=== PATIENT | female | born 1975 | race Caucasian/White ===

== ENCOUNTER 2022-02-04 13:06 | Emergency (ER) | payer MEDICAID ==
[~2022-02-04] VITALS: Ht 170.2 cm; Wt 136.0 kg
[2022-02-04] MEDS ORDERED: ACETAMINOPHEN 325MG TABLET PO ONE (14:00)
[2022-02-04] MEDS ORDERED: IBUPROFEN 600MG TABLET PO ONE (14:00)
[2022-02-04] MEDS ORDERED: NAPR-1176 MT (16:21)
[2022-02-04 17:00] VITALS: BP 155/89
== END 2022-02-04 17:08 | disposition home or self-care (01) ==
LOC: ER 13:06
DX: S09.90XA Unspecified injury of head, initial encounter (principal); M25.552 Pain in left hip; W01.0XXA Fall on same level from slipping, tripping and stumbling without subsequent striking against object, initial encounter; Y93.89 Activity, other specified; Y92.89 Other specified places as the place of occurrence of the external cause; Y99.8 Other external cause status
CPT/HCPCS: 73502; 73552; 73610; 73630; 99284